=== PATIENT | female | born 1955 | race African-American/Black ===

== ENCOUNTER 2018-01-09 17:49 | Observation (INO) | payer OTHER ==
[2018-01-09 18:33] VITALS: BMI 30.7
[2018-01-09] MEDS ORDERED: Diazepam 5 MG TAB PO SCH (18:45)
[2018-01-09 19:28] LABS: Troponin I 0.025 ng/mL (< 0.028)
[2018-01-09] MEDS ORDERED: Enoxaparin Sodium 40 MG/0.4 ML SYRINGE SC SCH (20:00)
[2018-01-09] MEDS: Carvedilol 3.125 MG TAB PO SCH (20:14)
[2018-01-09] MEDS ORDERED: Rosuvastatin 20 MG TAB PO SCH (21:00)
[2018-01-10 01:04] LABS: Troponin I 0.017 ng/mL (< 0.028)
[2018-01-10 04:05] LABS: Anion Gap 12 mmol/L (10-20); BUN (Urea Nitrogen) 19 mg/dL (9.8-20.1); Calc. Creatinine Clearance 89 mL/min (70-130); Calcium 9.2 mg/dL (7.8-10.44); Carbon Dioxide 26 mmol/L (23-31); Chloride 106 mmol/L (98-107); Estimated GFR-MDRD 76; Glucose 217 mg/dL (80-115); Potassium 3.7 mmol/L (3.5-5.1); Sodium 140 mmol/L (136-145)
[2018-01-10 04:10] LABS: Troponin I 0.022 ng/mL (< 0.028)
[2018-01-10] MEDS: Aspirin 81 mg Enteric Coated Tablet PO SCH (04:50)
[2018-01-10] MEDS: Losartan 25 MG TAB PO SCH (04:50)
[2018-01-10] MEDS: Carvedilol 3.125 MG TAB PO SCH (04:50)
[2018-01-10 05:13] LABS: Eosinophils 1 % (0-10); Hemoglobin 10.5 g/dL (12.0-16.0); Lymphocytes 54 % (21-51); MDiff Complete? YES; Mean Corpuscular Hemoglobin 30.6 pg (27.0-31.0); Mean Corpuscular Volume 95.6 fl (81.0-99.0); Mean Platelet Volume 7.4 fL (7.4-10.4); Metamyelocyte 1 % (0-0); Monocytes 6 % (0-10); Neutrophil 34 % (42-75); PLT Morphology Comment Appears Adequate; Platelet Count 310 thou/uL (130-400); RBC Distribution Width 12.6 % (11.5-14.5); RBC Morphology Normal; Reactive Lymphocytes 4 % (0-10); Red Blood Cell (RBC) Count 3.42 mill/uL (4.20-5.40); White Blood Cell (WBC) Count 5.3 thou/uL (4.8-10.8)
[2018-01-10] MEDS ORDERED: Sodium Chloride 0.9% 1,000 ML IV SCH (06:00)
[2018-01-10] MEDS ORDERED: Lidocaine 1% (PF) 30 ML VIAL ONE (07:00)
[2018-01-10] MEDS ORDERED: Fentanyl 100 MCG/2 ML VIAL ONE (08:48)
[2018-01-10] MEDS ORDERED: Carvedilol 3.125 MG TAB PO SCH (09:25)
[2018-01-10] MEDS ORDERED: Nitroglycerin 0.4 MG TAB (25 Tab Bottle) SL PRN (09:26)
[2018-01-10] MEDS ORDERED: Rosuvastatin 20 MG TAB PO SCH ×2 (09:26→21:00)
[2018-01-10] MEDS ORDERED: traMADol HCl 50 MG TAB PO PRN (09:26)
[2018-01-10] MEDS ORDERED: Acetaminophen/Codeine 30-300mg Tablet PO PRN ×2 (09:26)
[2018-01-10] MEDS ORDERED: Sodium Chloride 0.9% 200 ML IV SCH (09:30)
[2018-01-10] MEDS ORDERED: Carvedilol 6.25 MG TAB PO SCH ×2 (10:00→21:00)
[2018-01-10] MEDS ORDERED: Iopamidol 370 76% 100 ML VIAL ONE (13:00)
[2018-01-10] MEDS ORDERED: HumaLOG 300 UNITS/3 ML VIAL SC PRN (13:35)
[2018-01-10] MEDS ORDERED: Dextrose 50% Abboject 50 ML SYRINGE IVP PRN (13:35)
[2018-01-10] MEDS ORDERED: Dextrose 5% in Water 1,000 ML IV PRN (13:35)
[2018-01-10] MEDS: HumaLOG 300 UNITS/3 ML VIAL SC PRN (14:46)
[2018-01-11 09:00] VITALS: TEMP 98.2
[2018-01-11] MEDS ORDERED: Carvedilol 6.25 MG TAB PO SCH (09:00)
[2018-01-11] MEDS: HumaLOG 300 UNITS/3 ML VIAL SC PRN ×2 (09:54→12:26)
[2018-01-11] MEDS: Aspirin 81 mg Enteric Coated Tablet PO SCH (09:55)
[2018-01-11 11:59] VITALS: BP 158/72
[2018-01-11] MEDS: Losartan 25 MG TAB PO SCH (12:27)
--- NOTE | 2018-01-11 13:26 | DIS ---
FINAL DIAGNOSES: 1. Idiopathic dilated cardiomyopathy. 2. Left bundle branch block. 3. Diabetes. 4. Hypercholesterolemia. MEDICINES AT THE TIME OF DISCHARGE: 1. Coreg 12.5 mg twice a day. 2. Losartan 100 mg a day. 3. Aspirin 81 mg a day. 4. Crestor 20 mg a day. Follow up in 2 weeks. Please see admission note for full details. Briefly, Ms. Garcia is a pleasan t 62-year-old woman who presented with left arm pain in the office with left bundle branch block, new ly diagnosed. The patient was put in for observation in case if this is an anginal equivalent, espec cadence in view of her hypertension, diabetes, and hypercholesterolemia. She underwent cardiac cathete rization. She had minimal atherosclerotic calcification of the circumflex, otherwise normal coronary arteries. Ejection fraction was still in the 20% range. The patient was advised to undergo LifeVes t as a precaution to reduce risk of sudden cardiac . This has been approved by the [facility] and the final fitting is still pending. The patient will be released home. I suspect there is a hig h probability, she will ultimately need a biventricular pacemaker defibrillator. The reason for the patient brought to the hospital was for the left arm pain at rest with newly diagnosed left bundle br anch block and also had a recent indeterminate troponin level, but this may have represented unstable angina. Although, we subsequently found, she does not have obstructive coronary disease.
== END 2018-01-11 15:59 | disposition home or self-care (01) ==
LOC: 2SW 17:49
PROVIDERS: ADMIT Internal Medicine Cardiovascular Disease; ATTEND Internal Medicine Cardiovascular Disease
PROC: 4A023N7 Measurement of Cardiac Sampling and Pressure, Left Heart, Percutaneous Approach (ICD-10-PCS; principal; 2018-01-11)
PROC: B2151ZZ Fluoroscopy of Left Heart using Low Osmolar Contrast (ICD-10-PCS; 2018-01-11)
DX: I42.0 Dilated cardiomyopathy (principal); I44.7 Left bundle-branch block, unspecified; E11.9 Type 2 diabetes mellitus without complications; E78.00 Pure hypercholesterolemia, unspecified; I10 Essential (primary) hypertension; M10.9 Gout, unspecified; G47.30 Sleep apnea, unspecified; Z79.82 Long term (current) use of aspirin; Z79.84 Long term (current) use of oral hypoglycemic drugs; Z79.899 Other long term (current) drug therapy; Z87.891 Personal history of nicotine dependence; Z82.49 Family history of ischemic heart disease and other diseases of the circulatory system
CPT/HCPCS: 36415; 36416; 76942; 80048; 80053; 80061; 84484; 85025; 93458; 93798; 96372; C1769; G0378; J1644; J1650; J2001; J3010

== ENCOUNTER → 2018-06-04 | Day surgery (SDC) | payer OTHER ==
[2018-06-01 10:19] VITALS: BMI 30.5
[~2018-06-04] MED LIST: Acetaminophen/Codeine 30-300mg Tablet ONE; CEFAZOLIN 1 GM VIAL ONE; Fentanyl 100 MCG/2 ML VIAL ONE; Ketorolac Tromethamine 30 MG/ML VIAL ONE; Lidocaine 1% PF 5 ML VIAL ONE; Midazolam HCl 2 mg/2 ml Vial ONE; PHENYLEPHRINE-NS 100 MCG/ML 10 ML SYRINGE ONE; PROPOFOL 20 ML ONE; PROPOFOL 200 MG/20 ML VIAL ONE; Phenylephrine HCL 10 MG/ML VIAL ONE; Propofol 500 MG/50 ML VIAL ONE
[2018-06-04 09:53] LABS: #Basophils 0.1 thou/uL (0.0-0.2); #Eosinphils 0.1 thou/uL (0.0-0.7); #Lymphocytes 1.8 thou/uL (1.20-3.40); #Monocytes 0.4 thou/uL (0.11-0.59); #Neutrophils 2.1 thou/uL (1.40-6.50); %Eosinophils 1.7 % (0.0-10.0); %Monocytes 8.6 % (0.0-10.0); %Neutrophils 47.8 % (42.0-75.0); Hemoglobin 11.5 g/dL (12.0-16.0); Mean Corpuscular HGB CONC 34.1 g/dL (32.0-36.0); Mean Corpuscular Hemoglobin 31.2 pg (27.0-31.0); Mean Corpuscular Volume 91.4 fL (78.0-98.0); Mean Platelet Volume 7.4 fL (7.4-10.4); Platelet Count 269 thou/uL (130-400); RBC Distribution Width 12.9 % (11.5-14.5); Red Blood Cell (RBC) Count 3.69 mill/uL (4.20-5.40); White Blood Cell (WBC) Count 4.4 thou/uL (4.8-10.8)
[2018-06-04 10:10] LABS: Prothrombin Time 13.2 SEC (12.0-14.7)
[2018-06-04 10:13] LABS: Anion Gap 15 mmol/L (10-20); BUN (Urea Nitrogen) 18 mg/dL (9.8-20.1); Calc. Creatinine Clearance 77 mL/min (70-130); Calcium 8.9 mg/dL (7.8-10.44); Carbon Dioxide 21 mmol/L (23-31); Chloride 106 mmol/L (98-107); Estimated GFR-MDRD 64; Glucose 260 mg/dL (80-115); Sodium 138 mmol/L (136-145)
--- NOTE | 2018-06-04 17:12 | EKG ---
Test Reason : PREOP Blood Pressure : / mmHG Vent. Rate : 069 BPM Atrial Rate : 069 BPM P-R Int : 190 ms QRS Dur : 158 ms QT Int : 464 ms P-R-T Axes : 060 -27 246 degrees QTc Int : 497 ms Normal sinus rhythm Left bundle branch block Abnormal ECG No previous ECGs available Confirmed by [facility]ARENA [facility], DR. Stanley ([id number]) on 06/04/2018 5:12:28 PM Referred By: [facility] Confirmed By:DR. Jaden FIORE MD
== END ==
LOC: CCL 09:00
PROVIDERS: ATTEND Internal Medicine Cardiovascular Disease
PROC: 02HK3KZ Insertion of Defibrillator Lead into Right Ventricle, Percutaneous Approach (ICD-10-PCS; principal; 2018-06-04)
PROC: 0JH609Z Insertion of Cardiac Resynchronization Defibrillator Pulse Generator into Chest Subcutaneous Tissue and Fascia, Open Approach (ICD-10-PCS; principal; 2018-06-04)
PROC: 4B02XTZ Measurement of Cardiac Defibrillator, External Approach (ICD-10-PCS; principal; 2018-06-04)
DX: I11.0 Hypertensive heart disease with heart failure (principal); I50.22 Chronic systolic (congestive) heart failure; I42.8 Other cardiomyopathies; E11.9 Type 2 diabetes mellitus without complications; I44.7 Left bundle-branch block, unspecified; Z79.82 Long term (current) use of aspirin; Z79.84 Long term (current) use of oral hypoglycemic drugs; Z79.899 Other long term (current) drug therapy
CPT/HCPCS: 33225; 33249; 36005; 36415; 75820; 80048; 85025; 85610; 85730; 93005; 93010; 93641; C1777; C1882; C1898; C1900; J0690; J1885; J2250; J2370; J2704; J3010; J3490